=== PATIENT | female | born 1960 | race Caucasian/White ===

== ENCOUNTER 2016-03-30 12:33 | Day surgery (SDC) | payer OTHER ==
--- NOTE | 2016-03-23 14:04 | HP ---
Admitting History and Physical - Primary Care Physician PCP: Pablo Mckinnon - Admission Chief Complaint: H/O left breast cancer now with Right breast /nippple mass History of Present Illness: 55 year old nulliparous postmenapausal female S/P left total mastectomy implant reconstruction and augmentation on the right. 2positve lymph nodes /10 for invasive ductal carcinoma. She had chemotherapy for HER 2 donte positivity. The patient now presents with painful right nipple mass which needs to be excised. Right mammogram and US 01/2016 was negative History Source: Patient Limitations to Obtaining History: No Limitations - Past Medical History Pulmonary: Yes: Asthma - Past Surgical History Past Surgical History: Yes: Mastectomy (left mastectomy with implant reconstruction 2009/nipple reconstruction and tatooing fat grafting 2009 2010, 2012) - Smoking History Smoking history: Never smoked Have you smoked in the past 12 months: No - Alcohol/Substance Use Hx Alcohol Use: Yes (socially) Home Medications - Allergies Allergies/Adverse Reactions: Allergies Allergy/AdvReac Type Severity Reaction Status Date / Time No Known Allergies Allergy Verified 03/17/16 15:17 - Home Medications Home Medications (free text): tamoxifen Family Disease History - Family Disease History Family Disease History: CA: Father (esophageal cancer 68) Physical Examination Constitutional: Yes: Well Nourished, No Distress Breast(s): Yes: Other (Left implant intact healed incisions breast and axilla no recurrence or adenopathy right breast implant intact, right nipple pain and tenderness on exam density is present within right nipple which feels like a pappiloma no palpable adenopathy) Problem List - Problems (1) Mass of right breast Code(s): N63 - UNSPECIFIED LUMP IN BREAST Assessment/Plan Excision of right nipple mass
[2016-03-24 13:35] VITALS: BMI 21.4
[2016-03-30] MEDS ORDERED: LIDOCAINE HCL 1%, 10 MG/ML (20ML VIAL) ONE (15:29)
[2016-03-30] MEDS ORDERED: MIDAZOLAM HCL 2 MG/2 ML SINGLE DOSE VIAL ONE (15:48)
[2016-03-30] MEDS ORDERED: PROPOFOL 20 ML ONE (15:53)
[2016-03-30] MEDS ORDERED: ceFAZolin SODIUM 1 GM VIAL ONE (16:06)
[2016-03-30] MEDS ORDERED: LIDOCAINE HCL 1%, 10 MG/ML (50 mL VIAL) IJ ONE (16:07)
[2016-03-30] MEDS ORDERED: KETOROLAC TROMETHAMINE 30 MG/1 ML VIAL IVPUSH PRN ×2 (16:42→16:43)
[2016-03-30] MEDS ORDERED: ONDANSETRON 4 MG/2 ML VIAL IVPB PRN ×2 (16:42→16:43)
[2016-03-30] MEDS ORDERED: DEXTROSE 5%-0.45% SALINE 1,000 ML IV SCH ×2 (16:45)
[2016-03-30] MEDS ORDERED: ACETAMINOPHEN 325 MG TABLET (FP) PO PRN (17:07)
[2016-03-30] MEDS ORDERED: oxyCODONE HCL 5 MG TABLET PO PRN (17:07)
[2016-03-30] MEDS ORDERED: KETOROLAC TROMETHAMINE 30 MG/1 ML VIAL ONE (17:50)
[2016-03-30 20:25] VITALS: BP 122/72; PULSE 62; TEMP 98
--- NOTE | 2016-03-30 22:47 | OP ---
DATE OF OPERATION: 03/30/2016 PREOPERATIVE DIAGNOSIS: Right nipple mass. POSTOPERATIVE DIAGNOSIS: Right nipple mass. Await permanent pathology. PROCEDURE: Excision of right nipple mass. ANESTHESIA: IV sedation with local. PRIMARY SURGEON: James Mckinnon M.D. COMMUTATOR PRESSER: Shivam John COMPLICATIONS: There were no complications. Briefly, the patient is a 55-year-old nulliparous postmenopausal white female who has a history of left breast cancer diagnosed back in 2008 for which she underwent a mastectomy and axillary lymph node dissection for 1.5 cm infiltrating ductal cancer with 2/10 positive nodes which was ER/NE positive and HER2 positive. She underwent chemotherapy with Herceptin and was placed on tamoxifen and Arimidex. She presented in the office in 2015 with some right nipple pain and a density in the right nipple, and excision of this density was recommended. She was brought in through ambulatory surgery on March 30, 2016. In the holding area, site verification was made and informed consent was obtained. She was brought into the operating room and laid on the OR table in the supine position. The right breast was thoroughly prepped and draped in usual fashion. She was given IV sedation. 1% lidocaine was given underneath the right areolar nipple complex and incision was made directly in the right nipple and the ducts of the right nipple were dissected free, and the density within the nipple was excised sharply using a 15-blade scalpel. The tissue was sent to pathology for permanent section in formalin. Hemostasis was achieved, and the skin of the nipple was then reclosed using 5-0 fast absorbing suture in a running fashion. Sterile dressing was applied over the wound with a 4x4 and Bioclusive dressing. The patient was awake and alert at the end of the procedure, brought back to ambulatory surgery, where she will be discharged on the same day once discharge criteria are met. She is to follow up in the office in 1 week for formal wound and pathology check. All sponge, needle counts are correct at the end of the case, and estimated blood loss was minimal. JAMES MCKINNON M.D. SHANTE/[id number]
[2016-03-31] MEDS ORDERED: ANASTROZOLE 1 MG TABLET PO SCH (10:00)
--- NOTE | 2016-04-01 12:45 | PATH ---
Surgical Pathology Report Patient Name: NOY RODRIGUEZ [facility]. Rec. #: [id number] /Age/Gender: 1960 (Age: 55) / F Account: [id number] Location: [facility] AMBUL[facility]ORY Taken: 03/30/2016 Received: 03/30/2016 Reported: 04/01/2016 Physicians: Pablo Mckinnon M.D. Specimen(s) Received RIGHT BREAST NIPPLE MASS Clinical History Right nipple mass Ultrasound findings: probably b Pign Final Diagnosis NIPPLE, RIGHT BREAST, MASS, BIOPSY: BENIGN BREAST TISSUE SHOWING STROMAL FIBROSIS. Electronically Signed Deneen Grider M.D. Gross Description Received in formalin, labeled "right breast nipple mass," are 3 strauss-yellow, cylindrical portions of fibroadipose tissue ranging from 0.6-0.9 cm in length and averaging 0.3 cm in diameter. The specimens are submitted in toto in one cassette. Total formalin fixation time: Not indicated. 03/31/201603/31/2016
== END 2016-03-30 18:20 | disposition home or self-care (01) ==
LOC: FASU 12:33
PROVIDERS: ATTEND Surgery Surgical Oncology
PROC: 0HBT0ZX Excision of Right Breast, Open Approach, Diagnostic (ICD-10-PCS; principal; 2016-03-30 14:00)
DX: N60.31 Fibrosclerosis of right breast (principal); Z85.3 Personal history of malignant neoplasm of breast
CPT/HCPCS: 88305-TC

== ENCOUNTER 2020-12-04 06:28 | Day surgery (SDC) | payer OTHER ==
[2020-12-01 12:28] VITALS: BMI 21.4
[2020-12-04] MEDS ORDERED: ceFAZolin SODIUM 1 GM VIAL ONE ×2 (07:09→08:03)
[2020-12-04] MEDS ORDERED: LIDOCAINE HCL 1%, 10 MG/ML (20ML VIAL) ONE (07:09)
[2020-12-04] MEDS ORDERED: GENTAMICIN SO4 80 MG/2 ML VIAL ONE (07:09)
[2020-12-04] MEDS ORDERED: LIDOCAINE 1%/EPI 1:100000 (20 ML MULTI DOSE VIAL) ONE (07:10)
[2020-12-04] MEDS ORDERED: EPINEPHrine 1:1,000 1 MG/1 ML - 30ML VIAL (INJECTION) ONE (07:10)
[2020-12-04] MEDS ORDERED: PROPOFOL 20 ML ONE ×2 (07:51)
[2020-12-04] MEDS ORDERED: DEXAMETHASONE SOD PHOSPHATE 4 MG/1 ML VIAL ONE (07:51)
[2020-12-04] MEDS ORDERED: LIDOCAINE HCL/PF 2% SDV 5ML VIAL ONE (07:51)
[2020-12-04] MEDS ORDERED: ONDANSETRON 4 MG/2 ML VIAL ONE (07:51)
[2020-12-04] MEDS ORDERED: MIDAZOLAM HCL 2 MG/2 ML SINGLE DOSE VIAL ONE (07:52)
[2020-12-04] MEDS ORDERED: ROCURONIUM BROMIDE 50 MG/5 ML SYRINGE ONE (07:52)
[2020-12-04] MEDS ORDERED: SEVOFLURANE 250 ML BTL ONE (07:57)
[2020-12-04] MEDS ORDERED: VANCOMYCIN 1,000 MG VIAL (RESTRICTED TO ID ONLY) ONE (08:46)
[2020-12-04] MEDS ORDERED: GLYCOPYRROLATE 0.2 MG/1 ML VIAL ONE (10:29)
[2020-12-04] MEDS ORDERED: NEOSTIGMINE METHYLSULFATE 0.5 MG/1 ML - 10 ML MDV ONE (10:30)
[2020-12-04] MEDS ORDERED: oxyCODONE HCL 5 MG TABLET PO PRN (10:56)
[2020-12-04] MEDS ORDERED: ONDANSETRON 4 MG/2 ML VIAL IVPUSH PRN (10:56)
[2020-12-04] MEDS ORDERED: ACETAMINOPHEN 1000 MG/100 ML VIAL IVPB PRN (10:57)
[2020-12-04] MEDS ORDERED: KETOROLAC TROMETHAMINE 30 MG/1 ML VIAL IVPUSH PRN (10:57)
[2020-12-04] MEDS ORDERED: LACTATED RINGERS SOLUTION 1,000 ML IV SCH (11:00)
[2020-12-04 12:17] VITALS: PULSE 60
[2020-12-04 13:11] VITALS: BP 128/67; TEMP 97.9
== END 2020-12-04 13:11 | disposition home or self-care (01) ==
LOC: FASU 06:28
PROVIDERS: ATTEND Plastic Surgery
PROC: 0HNV0ZZ Release Bilateral Breast, Open Approach (ICD-10-PCS; 2020-12-04)
PROC: 0HRV37Z Replacement of Bilateral Breast with Autologous Tissue Substitute, Percutaneous Approach (ICD-10-PCS; principal; 2020-12-04 09:00)
PROC: 0JB80ZZ Excision of Abdomen Subcutaneous Tissue and Fascia, Open Approach (ICD-10-PCS; 2020-12-04 09:00)
DX: M95.4 Acquired deformity of chest and rib (principal); Z90.13 Acquired absence of bilateral breasts and nipples; N65.1 Disproportion of reconstructed breast; Z85.3 Personal history of malignant neoplasm of breast
CPT/HCPCS: 19342; 19370; 19380; L8600; 88300-TC; 94760; J0131